=== PATIENT | female | born 1960 | race Hispanic/Latino ===

== ENCOUNTER 2019-08-27 10:07 | Emergency (ER) | payer BC ==
[~2019-08-27] VITALS: Ht 160 cm; Wt 106.6 kg
[2019-08-27] MEDS ORDERED: LISINOPRIL10 MG PO (11:16)
[2019-08-27] MEDS ORDERED: HYDROCHLOROTHIA25 MG PO (11:16)
[2019-08-27] MEDS ORDERED: LEVOTHYROXINE50 MCG PO (11:16)
[2019-08-27 11:42] LABS: BASOPHILS % 0.2 % (0.0-1.0); HEMATOCRIT 42.8 % (34.2-44.1); HEMOGLOBIN 14.4 g/dL (12.0-16.0); LYMPHOCYTES # (AUTO) 0.8 (1.0-3.2); LYMPHOCYTES % 8.2 % (18.0-39.1); MEAN CORPUSCULAR HEMOGLOBIN 30.3 pg (28-32); MEAN CORPUSCULAR HGB CONC 33.6 g/dL (31-35); MEAN CORPUSCULAR VOLUME 90.1 fL (81-99); MONOCYTES # (AUTO) 0.3 (0.2-0.8); MONOCYTES % 3.6 % (4.4-11.3); NEUTROPHILS # (AUTO) 8.2 (2.1-6.9); NEUTROPHILS % 86.5 % (38.7-80.0); PLATELET COUNT 345 x10e3/uL (140-360); RED BLOOD COUNT 4.75 x10e6/uL (3.6-5.1); RED CELL DISTRIBUTION WIDTH 14.1 % (11.7-14.4)
--- NOTE | 2019-08-27 11:53 | NUR ---
Faustino lopez in ED - [facility] Spoke with case mangement regarding patient's oxygen saturation. Informed her that patient desats to lower 80's when not on O2.
[2019-08-27 12:14] LABS: ALANINE AMINOTRANSFERASE 28 IU/L (0-55); ALBUMIN 3.3 g/dL (3.5-5.0); ALBUMIN/GLOBULIN RATIO 0.6 (0.8-2.0); ALKALINE PHOSPHATASE 64 IU/L (40-150); ANION GAP 16.9 mmol/L (8-16); BLOOD UREA NITROGEN 15 mg/dL (7-26); BUN/CREATININE RATIO 18 (6-25); CALCIUM 9.2 mg/dL (8.4-10.2); CARBON DIOXIDE 23 mmol/L (22-29); CHLORIDE 90 mmol/L (98-107); CREATINE KINASE 492 IU/L (29-168); CREATININE, SERUM 0.85 mg/dL (0.57-1.11); EST GLOMERULAR FILTRATION RATE > 60 ML/MIN (60-); GLUCOSE 148 mg/dL (74-118); POTASSIUM 4.9 mmol/L (3.5-5.1); SODIUM 125 mmol/L (136-145)
--- NOTE | 2019-08-27 12:38 | NUR ---
previous note entered in error
--- NOTE | 2019-08-27 13:10 | Diagnostic Imaging Report ---
X-ray chest AP portable Comparison: None History: Covid positive. Trouble breathing. Findings: Central airways unremarkable. Borderline heart size. Atherosclerotic aorta. No definite pleural effusion or pneumothorax. Hypoaerated lungs. Despite this, there is presence of bilateral diffuse pulmonary interstitial and airspace type of infiltrates. Visualized skeleton and upper abdomen show no acute abnormality. Impression: Bilateral diffuse pulmonary infiltrates hallmarks of interstitial and airspace disease. This could be consistent with the patient's history of Covid positive status. Signed by: Kushal Henderson MD on 08/27/2019 1:07 PM
[2019-08-27] MEDS ORDERED: ONDANSETRON HCL INJ 2MG/ML 2ML 2 MG/ML VIAL IV STA (13:14)
--- NOTE | 2019-08-27 16:03 | NUR ---
CALLED [facility] FOR PT TRANSFER.
--- NOTE | 2019-08-27 16:34 | NUR ---
ATTEMPTING REPORT FOR PT #[id number]
--- NOTE | 2019-08-27 16:38 | NUR ---
LEFT ON HOLD OVER 5 MINS TRYING TO CALL REPORT. NO ANSWER.
[2019-08-27 16:56] VITALS: BP 120/80
--- NOTE | 2019-08-27 17:32 | NUR ---
REPORT TO EMS
--- NOTE | 2019-08-27 18:10 | Emergency Department Note ---
History of Present Illnes History of Present Illness Chief Complaint: COVID PUI History of Present Illness 59-year-old female arrived to the ED with complaints of cough, shortness of breath and fever. Patient states she tested positive for Covid but is feeling worse. Historian: Patient Arrival Mode: Car Land [employer] Required: No Onset (how long ago): day(s) Radiation: Reports non-radiation Timing of current episode: intermittent Progression: worsening Chronicity: new Context: Reports recent illness Past Medical/Family History Physician Review I have reviewed the patient's past medical and family history. Any updates have been documented here. Past Medical History Recent Fever: Yes Clinical Suspicion of Infectio: Yes New/Unexplained Change in Ment: No Social History Smoking Cessation: Never Smoker Counseling Performed: No Alcohol Use: None Any Illegal Drug Use: No TB Exposure/Symptoms: No Physically hurt or threatened: No Other Any Pre-Existing Lines (PICC,: No Is patient up to date on immun: No Last Flu: not utd Last Pneumovax: not utd Review of Systems Review of Systems Constitutional: Reports as per HPI, Reports chills, Reports fever EENTM: Reports no symptoms Cardiovascular: Reports no symptoms Respiratory: Reports as per HPI, Reports cough, Reports dyspnea Gastrointestinal: Reports no symptoms Genitourinary: Reports no symptoms Musculoskeletal: Reports no symptoms Integumentary: Reports no symptoms Neurological: Reports no symptoms Psychological: Reports no symptoms Endocrine: Reports no symptoms Hematological/Lymphatic: Reports no symptoms Physical Exam Related Data Allergies: Coded Allergies: No Known Allergies (Unverified , 08/27/19) Triage Vital Signs Vital Signs Date Time Temp Pulse Resp B/P (MAP) Pulse Ox O2 Delivery O2 Flow Rate FiO2 08/27/19 10:56 98.9 99 22 150/76 83 Physical Exam CONSTITUTIONAL Constitutional: Present well-developed, Present well-nourished, Present ill appearing HENT HENT: Present normocephalic, Present atraumatic, Present oropharynx clear/moist, Present nose normal HENT L/R: Present left ext ear normal, Present right ext ear normal EYES Eyes: Reports PERRL, Reports conjunctivae normal NECK Neck: Present ROM normal PULMONARY Pulmonary: Present respiratory distress CARDIOVASCULAR Cardiovascular: Present regular rhythm, Present heart sounds normal, Present capillary refill normal, Present normal rate GASTROINTESTINAL Abdominal: Present soft, Present nontender, Present bowel sounds normal GENITOURINARY Genitourinary: Present exam deferred SKIN Skin: Present warm, Present dry MUSCULOSKELETAL Musculoskeletal: Present ROM normal NEUROLOGICAL Neurological: Present alert, Present oriented x 3, Present no gross motor or sensory deficits PSYCHOLOGICAL Psychological: Present mood/affect normal, Present judgement normal Results Laboratory Result Diagram: 08/27/19 1111 08/27/19 1111 Laboratory Laboratory Tests Test 08/27/19 11:11 White Blood Count 9.48 x10e3/uL (4.8-10.8) Red Blood Count 4.75 x10e6/uL (3.6-5.1) Hemoglobin 14.4 g/dL (12.0-16.0) Hematocrit 42.8 % (34.2-44.1) Mean Corpuscular Volume 90.1 fL (81-99) Mean Corpuscular Hemoglobin 30.3 pg (28-32) Mean Corpuscular Hemoglobin Concent 33.6 g/dL (31-35) Red Cell Distribution Width 14.1 % (11.7-14.4) Platelet Count 345 x10e3/uL (140-360) Neutrophils (%) (Auto) 86.5 % (38.7-80.0) Lymphocytes (%) (Auto) 8.2 % (18.0-39.1) Monocytes (%) (Auto) 3.6 % (4.4-11.3) Eosinophils (%) (Auto) 0.0 % (0.0-6.0) Basophils (%) (Auto) 0.2 % (0.0-1.0) Neutrophils # (Auto) 8.2 (2.1-6.9) Lymphocytes # (Auto) 0.8 (1.0-3.2) Monocytes # (Auto) 0.3 (0.2-0.8) Eosinophils # (Auto) 0.0 (0.0-0.4) Basophils # (Auto) 0.0 (0.0-0.1) Absolute Immature Granulocyte (auto 0.14 x10e3/uL (0-0.1) Sodium Level 125 mmol/L (136-145) Potassium Level 4.9 mmol/L (3.5-5.1) Chloride Level 90 mmol/L (98-107) Carbon Dioxide Level 23 mmol/L (22-29) Anion Gap 16.9 mmol/L (8-16) Blood Urea Nitrogen 15 mg/dL (7-26) Creatinine 0.85 mg/dL (0.57-1.11) Estimat Glomerular Filtration Rate > 60 ML/MIN (60-) BUN/Creatinine Ratio 18 (6-25) Glucose Level 148 mg/dL (74-118) Calcium Level 9.2 mg/dL (8.4-10.2) Total Bilirubin 0.4 mg/dL (0.2-1.2) Aspartate Amino Transf (AST/SGOT) 51 IU/L (5-34) Alanine Aminotransferase (ALT/SGPT) 28 IU/L (0-55) Alkaline Phosphatase 64 IU/L (40-150) Creatine Kinase 492 IU/L (29-168) Creatine Kinase MB 1.80 ng/mL (0-5.0) Troponin I 0.001 ng/mL (0-0.300) Total Protein 8.4 g/dL (6.5-8.1) Albumin 3.3 g/dL (3.5-5.0) Globulin 5.1 g/dL (2.3-3.5) Albumin/Globulin Ratio 0.6 (0.8-2.0) Lab results reviewed: Yes Imaging Imaging results reviewed: Yes Impressions Impression: Bilateral diffuse pulmonary infiltrates hallmarks of interstitial and airspace disease. This could be consistent with the patient's history of Covid positive status. Critical Care Time Total Critical Care Time (min): 65 Critical care time exclusive o: separately billable procedures Critcal care necessary due to: respiratory failure Assessment & Plan Medical Decision Making MDM 59-year-old female brought to ED with the cough and fever. Patient admits to being positive for Covid. Patient's chest x-ray consistent with covid pneumonia- patient hypoxic at about 82-84% on room air. Patient did improve on supplemental oxygen, however, still tachypneic. Patient required transfer for higher level of care. Assessment & Plan Final Impression: (1) Acute respiratory disease due to COVID-19 virus Depart Disposition: TRANS TO OTHER [facility] Last Vital Signs Date Time Temp Pulse Resp B/P (MAP) Pulse Ox O2 Delivery O2 Flow Rate FiO2 08/27/19 16:35 82 27 120/80 92 08/27/19 10:56 98.9 Home Meds Reported Medications Levothyroxine Sodium (LEVOTHYROXINE SODIUM) 50 Mcg Tablet, 150 MCG PO DAILY, #30 TAB 08/27/19 Hydrochlorothiazide (HYDROCHLOROTHIAZIDE) 25 Mg Tablet, 12.5 MG PO DAILY, #30 TAB 08/27/19 Lisinopril (LISINOPRIL) 10 Mg Tablet, 20 MG PO DAILY, #30 TAB 08/27/19 Medications in the ED Ondansetron HCl 4 mg NOW STAT IV Last administered on 08/27/19at 13:43; Admin Dose 4 MG; Start 08/27/19 at 13:14; Stop 08/27/19 at 13:39; Status DC DEEPIKA CARLISLE DO Aug 27, 2019 18:10
== END 2019-08-27 17:47 | disposition other institution (70) ==
LOC: ER 10:07
DX: R50.9 Fever, unspecified (principal); U07.1 COVID-19; J98.8 Other specified respiratory disorders
CPT/HCPCS: 36415; 71045; 80053; 82550; 82553; 84484; 85025; 99285